=== PATIENT | male | born 1965 | race Two or more races ===

== ENCOUNTER 2024-06-28 20:01 | Emergency (ER) | payer MEDICAID, SELFPAY ==
[2024-06-28 20:02] VITALS: BMI 23.0
[2024-06-28 20:12] VITALS: BP 152/85; PULSE 94; RESP 18; TEMP 37.2; O2SAT 99
--- NOTE | 2024-06-28 20:32 | PD.EDALLER ---
ED Allergic Reaction RME/HPI General Chief complaint: Skin/Abscess/Foreign Body Stated complaint: ITCHING x 3 MONTHS Time Seen by Provider: 06/28/24 20:27 Arrival date/time: 06/28/24 20:01 58M with history of homelessness presents to ED with 3 months of intermittent itchiness. No new foods, meds, or hygiene products. Limitations: no limitations Related Data Previous Rx's ?Medication ?Instructions ?Recorded cetirizine 10 mg tablet 10 mg PO BID allergy symptoms #60 06/28/24 tabs prednisone 20 mg tablet 20 mg PO BID 1 week #14 tabs 06/28/24 Allergies Allergy/AdvReac Type Severity Reaction Status Date / Time No Known Allergies Allergy Verified 06/28/24 20:03 Review of Systems Review of Systems Systems Reviewed: All systems reviewed, normal except as documented Constitutional Constitutional: Reports system reviewed and no additional complaints, except as documented, Denies fever(s) and Denies headache(s) ENT Ears, Nose, Mouth, and Throat: Denies disequilibrium and Denies headache(s) Cardiovascular Cardiovascular: Reports system reviewed and no additional complaints, except as documented, Denies chest pain and Denies dyspnea Respiratory Respiratory: Reports system reviewed and no additional complaints, except as documented, Denies cough and Denies dyspnea Gastrointestinal Gastrointestinal: Reports system reviewed and no additional complaints, except as documented, Denies abdominal pain, Denies nausea and Denies vomiting Integumentary/Breasts Skin/Breast: Reports as per HPI and Reports pruritus Neurologic Neurologic: Reports system reviewed and no additional complaints, except as documented, Denies confusion, Denies disequilibrium and Denies headache(s) Psychiatric Psychiatric: Denies confusion Past Medical History Past Medical History CARDIAC: Positive Hypercholesterolemia and Hypertension; Negative Congestive Heart Failure RESPIRATORY: Negative Chronic Obstructive Pulmonary Disease (COPD) GENITOURINARY: Negative Renal Disease ENDOCRINE: Negative Diabetes Mellitus Type 1 or Diabetes Mellitus Type 2 PSYCHO/SOCIAL: Positive Depression and Anxiety Social History SMOKING STATUS: Never smoker SUBSTANCE USE: methamphetamine (intranasal meth) ED Exam General Limitations: Present no limitations General appearance: Present alert and in no apparent distress Head Head exam: Present atraumatic Eye Eye exam: Present normal appearance, PERRL and EOMI ENT ENT exam: Present normal exam, normal oropharynx and mucous membranes moist Neck Neck exam: Present normal inspection, full ROM and trachea midline Chest Chest inspection: Present normal inspection and symmetric chest wall rise Respiratory Respiratory exam: Present normal lung sounds bilaterally Cardiovascular Cardiovascular exam: Present regular rate, normal rhythm and normal heart sounds Abdominal Exam Abdominal exam: Present soft and normal bowel sounds Extremities Exam Extremities exam: Present normal inspection and full ROM Back Exam Back exam: Present normal inspection and full ROM Neurological Exam Neurological exam: Present alert, oriented X3 and CN II-XII intact Psychiatric Psychiatric exam: Present normal affect and normal mood Skin Skin exam: Present warm, dry, intact and normal color Course Quality Measures none Orders Category Date Time Status Dexamethasone Inj [Decadron Inj] Med 06/28/24 20:28 Discontinued 10 mg PO X1 ONE DiphenhydrAMINE [Benadryl] Med 06/28/24 20:28 Discontinued 25 mg PO X1 ONE Vital Signs Vital signs: Vital Signs Temperature 98.9 F 06/28/24 20:12 Pulse Rate 94 06/28/24 20:12 Respiratory Rate 18 06/28/24 20:12 Blood Pressure 152/85 H 06/28/24 20:12 Pulse Oximetry (%) 99 06/28/24 20:12 Oxygen Delivery Method Room Air 06/28/24 20:12 O2 at 99% on RA and WNLs Allergic Reaction MDM Narrative MDM Narrative:: 58M with history of homelessness presents to ED with 3 months of intermittent itchiness. No new foods, meds, or hygiene products. Physical exam reveals no obvious rash or growths, except for mild excoriations from scratching. Patient is afebrile, calm, and alert. Mission Assessment Specialist and meds given. Patient data External records reviewed:: [facility] previous records Clinical information provided by:: patient Social determinants that could affect healthcare access:: housing Patient has the following chronic illnesses:: homelessness How is presenting disease/condition affected by chronic disease/condition?: exacerbated by Evaluation data The following diagnostics were reviewed and interpreted by me:: other (specify) (none) Lab and/or radiology exams considered but not ordered:: not ordered Interpretation Summary: n/a Medications / Prescriptions Medications or Prescriptions considered but not ordered:: ordered Medication administrations:: Medication Administration History Discontinued Medications Dexamethasone Sodium Phosphate (Dexamethasone Sod Phos Inj 10 Mg/Ml Vial) 10 mg PO X1 ONE Stop: 06/28/24 20:29 Last Admin: 06/28/24 20:35 Dose: 10 mg Documented By: Diphenhydramine HCl (Diphenhydramine 25 Mg Capsule) 25 mg PO X1 ONE Stop: 06/28/24 20:29 Last Admin: 06/28/24 20:35 Dose: 25 mg Documented By: EH above Consultations Consultation(s) initiated? (list below): No Diagnosis Differential Diagnosis allergic reaction: anaphylaxis, allergic reaction, angioedema, contact dermatitis, adverse reaction to drug, viral enanthem, urticaria and other (chronic pruritus ) Most likely diagnosis given after review of the tests above:: chronic pruritus Admission Indicated Admission indicated?: not indicated Admission Request Was there a request for admission?: No Disposition Plan Disposition Plan: Discharge Discharge Attestation Discharge Attestation: The patient and all family members were given an opportunity to ask questions and understood the discharge instructions. Discharge instructions specifically effects, indications for sooner follow up or return to the emergency department, and the expected course of current diagnosis. Patient condition: Stable Discharge Plan Plan Patient Disposition: HOME (Self Care) Disposition Comment: Stable Prescriptions/Referrals Prescriptions/Med Rec: New prednisone 20 mg tablet 20 mg PO BID 7 Days Qty: 14 0RF cetirizine 10 mg tablet 10 mg PO BID Qty: 60 0RF Problem List Clinical Impression: Chronic pruritus Patient/Caregiver Discharge Instructions Additional Instructions: Please follow-up with PCP within 24-48 hours and return immediately if symptoms worsen. If problem persists, see dermatology and/or supervisor evaporator. Recommend daily OTC antihistamine. Finish entire steroid course. Print Language: Barbadian Stand Alone Forms: Patient Portal Info Letter AINSLEY/YURIDIA Supervising Physician AINSLEY/YURIDIA Supervising Physician: Dr. Ramirez
[2024-06-28] MEDS: DEXAMETHASONE SOD PHOS INJ 10 MG/ML VIAL PO (20:35)
[2024-06-28] MEDS: DiphenhydrAMINE 25 MG CAPSULE PO (20:35)
== END 2024-06-28 21:00 | disposition home or self-care (01) ==
LOC: SERX 20:51
PROVIDERS: Emergency Provider Emergency Medicine
DX: L29.9 Pruritus, unspecified (principal)
CPT/HCPCS: 99282; J1100; A9270

== ENCOUNTER 2024-07-10 22:24 | Emergency (ER) | payer MEDICAID, SELFPAY ==
[2024-07-10 22:26] VITALS: BMI 21.7
--- NOTE | 2024-07-10 22:31 | PC.NURSE ---
Reported to tomato paste maker Alex that pt is endorsing suicidal ideation.
[2024-07-10 22:38] VITALS: BP 159/93; PULSE 96; RESP 20; TEMP 37; O2SAT 98
--- NOTE | 2024-07-10 23:24 | XR_ITS ---
Examination: Foot, left, 3 views Technique: AP, oblique, lateral views foot, 3 views Date and time of exam: July 10, 2024 1129 hrs. Indications: Left foot pain beginning 6 months ago. 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
--- NOTE | 2024-07-10 23:25 | PD.EDRME ---
Rapid Medical Screening Exam RME Arrival date/time: 07/10/24 22:24 58-year-old male presents emergency department complaining of left foot pain and suicidal ideation without plan. Chief Complaint: Suicidal Time Seen by Provider: 07/10/24 22:34 Vital signs: Vital Signs Temperature 98.6 F 07/10/24 22:38 Pulse Rate 96 07/10/24 22:38 Respiratory Rate 20 07/10/24 22:38 Blood Pressure 159/93 H 07/10/24 22:38 Pulse Oximetry (%) 98 07/10/24 22:38 Oxygen Delivery Method Room Air 07/10/24 22:38 Vital signs reviewed by provider: Yes
[2024-07-10 23:54] LABS: Basophils # (Auto) 0.1 Thou/mm3 (0.0-0.2); Basophils % (Auto) 1 % (0-2.5); Eosinophils # (Auto) 0.2 Thou/mm3 (0.0-0.5); Eosinophils % (Auto) 2 % (0-10); Hematocrit 42.3 % (41.0-53.0); Immature Granulocytes % (Auto) 0 % (0-0); Immature Granulocytes Auto 0.02 Thou/mm3 (0.00-0.00); Lymphocytes # (Auto) 2.7 Thou/mm3 (1.0-4.8); Lymphocytes % (Auto) 40 % (10-50); Mean Corpuscular HGB Conc 35.5 g/dl (31.0-37.0); Mean Corpuscular Volume 93 fL (80-100); Monocytes # (Auto) 0.7 Thou/mm3 (0.0-0.8); Monocytes % (Auto) 10 % (0-12); Neutrophils # (Auto) 3.1 Thou/mm3 (1.8-7.7); Neutrophils % (Auto) 47 % (37-80); Nucleated Red Blood Cell % 0 /100 WBC (0); Platelet Count 164 Thou/mm3 (140-440); Red Blood Count 4.54 Miln/mm3 (4.50-5.90); White Blood Count 6.7 Thou/mm3 (3.8-10.6)
[2024-07-11 00:28] LABS: Alanine Aminotransferase 35 U/L (10-49); Albumin/Globulin Ratio 1.7 (1.2-2.2); Alcohol, Blood Medical 397.5 mg/dL (0-10.0); Alkaline Phosphatase 159 U/L (46-116); Anion Gap 9 (7-16); Aspartate Amino Transferase 42 U/L (0-34); BUN/Creatinine Ratio 13 Ratio (12-20); Bilirubin,Total 0.3 mg/dL (0.3-1.2); Blood Urea Nitrogen 13 mg/dL (9-23); Calcium 9.1 mg/dL (8.3-10.6); Calcium (Corrected) 9.1 mg/dL (8.5-10.1); Carbon Dioxide 23.6 mMol/L (20.0-31.0); Chloride 108 mMol/L (98-107); Estimated Creatinine Clearance 81.6 mL/min (>60); Globulin 2.9 gm/dL (2.3-3.5); Glucose 100 mg/dL (74-106); Osmolality,Calculated 281 (275-295); Potassium 4.3 mMol/L (3.4-5.1); Sodium 141 mMol/L (136-145); Total Protein 7.9 gm/dL (5.7-8.2); eGFR > 60 See Note
[2024-07-11 00:37] LABS: Amphetamine/Methamp Scrn,U Negative (Negative); Barbiturate Screen,Urine Negative (Negative); Benzodiazepines Screen,Urine Negative (Negative); Benzoylecgonine Screen, Ur Negative (Negative); Fentanyl Screen,Urine Negative (Negative); Opiate Screen,Urine Negative (Negative); THC Screen,Urine Negative (Negative)
[2024-07-11 01:12] VITALS: BP 167/88; PULSE 90; RESP 20; TEMP 36.7; O2SAT 99
--- NOTE | 2024-07-11 01:22 | PD.EDSKIN ---
ED Skin Abcess FB-RME/HPI General Chief complaint: Skin/Abscess/Foreign Body Stated complaint: toenail infections bilaterally Time Seen by Provider: 07/10/24 22:34 Source: patient Arrival date/time: 07/10/24 22:24 Mode of arrival: ambulatory Limitations: no limitations RME / HPI RME / HPI narrative: 07/10/24 22:24 58-year-old male presents emergency department complaining of left foot pain and suicidal ideation without plan. Dr. Escalante?s Main ED Evaluation: 58-year-old male presents to the emergency department for complaints of moderate itchiness to his feet. Patient states it has been ongoing for the past 7 months. Patient denies suicidal ideation. He denies any other associated symptoms, aggravating factors or medical complaints. Patient reports difficulty sleeping despite sleeping in the ER lobby. Related Data Previous Rx's ?Medication ?Instructions ?Recorded cetirizine 10 mg tablet 10 mg PO BID allergy symptoms #60 06/28/24 tabs tolnaftate 1 % topical spray 1 spray topical TID Athlete's foot 07/11/24 (Tinactin) #150 grams Allergies Allergy/AdvReac Type Severity Reaction Status Date / Time No Known Allergies Allergy Verified 06/28/24 20:03 Review of Systems Review of Systems Systems Reviewed: All systems reviewed, normal except as documented Past Medical History Past Medical History CARDIAC: Positive Hypercholesterolemia and Hypertension; Negative Congestive Heart Failure RESPIRATORY: Negative Chronic Obstructive Pulmonary Disease (COPD) GENITOURINARY: Negative Renal Disease ENDOCRINE: Negative Diabetes Mellitus Type 1 or Diabetes Mellitus Type 2 PSYCHO/SOCIAL: Positive Depression and Anxiety Social History SMOKING STATUS: Never smoker SUBSTANCE USE: methamphetamine (intranasal meth) ED Exam Narrative Physical exam: GENERAL APPEARANCE: alert and oriented x 4, well-developed, well-nourished, no acute distress VITALS: All vitals were reviewed and the pulse ox is 99% on room air, which is normal according to my interpretation. HEENT: Normocephalic, atraumatic; pupils equal, round, reactive to light; EOMI; mucous membranes pink, moist; oropharynx clear NECK: Supple LUNGS: CTABL; no wheezes, no rales, no rhonchi HEART: Regular rate, regular rhythm; normal S1, S2; no murmurs ABDOMEN: non distended; normal BS; soft, no tenderness, no guarding, no rebound; no masses, no organomegaly, no hernia BACK: no CVA tenderness EXTREMITIES: atraumatic; no edema NEUROLOGIC: awake; alert and oriented x4; cranial nerves II-XII grossly intact; no focal sensory or motor deficits PSYCHIATRIC: appropriate mood and affect SKIN: warm, dry, normal color; no rashes General Limitations: Present no limitations Course Quality Measures none Orders Category Date Time Status XR foot comp LT min 3V Stat Exams 07/10/24 23:24 Completed Alcohol, Blood Medical Stat Lab 07/10/24 23:42 Completed CBC Stat Lab 07/10/24 23:42 Completed CMP [Comprehensive Metabolic Panel] Stat Lab 07/10/24 23:42 Completed Drug Screen,Urine Stat Lab 07/10/24 23:56 Completed Vital Signs Vital signs: Vital Signs Temperature 98.6 F 07/10/24 22:38 Pulse Rate 96 07/10/24 22:38 Respiratory Rate 20 07/10/24 22:38 Blood Pressure 159/93 H 07/10/24 22:38 Pulse Oximetry (%) 98 07/10/24 22:38 Oxygen Delivery Method Room Air 07/10/24 22:38 Skin / Abscess / Foreign Body MDM Narrative MDM Narrative:: Scribe Attestation: IGonzalez am scribing for and in the presence of Dr. Escalante. Provider Notation: Although this document has been carefully reviewed, there may still be some phonetic and other typographical errors. These errors are purely grammatical due to imperfections in the software program and should not be construed in any way to compromise the substance of the patient's medical care during this visit. Patient data External records reviewed:: [facility] previous records Clinical information provided by:: patient Social determinants that could affect healthcare access:: alcohol use Patient has the following chronic illnesses:: HLD, HTN, Depression, Anxiety How is presenting disease/condition affected by chronic disease/condition?: uneffected by Evaluation data The following diagnostics were reviewed and interpreted by me:: lab results and radiology exam(s) Lab and/or radiology exams considered but not ordered:: None Interpretation Summary: Examination: Foot, left, 3 views Date and time of exam: July 10, 2024 1129 hrs. Indications: Left foot pain beginning 6 months ago. 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 (list below): No Diagnosis Skin/Abscess Differential Diagnosis: other (Athlete's foot vs tinea corporis vs tinea cruris vs allergic reaction) Most likely diagnosis given after review of the tests above:: Athlete's foot Admission Indicated Admission indicated?: not indicated Admission Request Was there a request for admission?: No Disposition Plan Disposition Plan: Discharge Discharge Attestation Discharge Attestation: The patient and all family members were given an opportunity to ask questions and understood the discharge instructions. Discharge instructions specifically effects, indications for sooner follow up or return to the emergency department, and the expected course of current diagnosis. Patient condition: Stable Discharge Plan Plan Patient Disposition: HOME (Self Care) Disposition Comment: Stable for discharge Patient condition on transfer: Stable Prescriptions/Referrals Prescriptions/Med Rec: New Tinactin 1 % aerosol,spray 1 spray topical TID Qty: 150 0RF No Action cetirizine 10 mg tablet 10 mg PO BID Qty: 60 0RF Referrals: [facility] [Outside] - In 1 week No Primary/Family,Physician [Primary Care Provider] - In 1 week Problem List Clinical Impression: Athlete's foot Patient/Caregiver Discharge Instructions Discharge Activity: activity as tolerated Education Materials: ED Athlete's Foot Additional Instructions: I ordered a prescription for a medicine called Tinactin. This is a spray that you put on your feet 3 times a day. This is for athlete's foot and hopefully will help you with your itchiness. You should follow-up in the [facility] within the next several days Return to the emergency department if you have any worsening or any further medical problems Print Language: Lao Stand Alone Forms: [employer] Award Info., Patient Portal Info Letter
--- NOTE | 2024-07-11 01:25 | PC.NURSE ---
PATIENT DENIES ANY SUICIDAL IDEATIONS AND IS ONLY C/O BILATERAL TOE PAIN
== END 2024-07-11 02:05 | disposition home or self-care (01) ==
PROVIDERS: Emergency Provider Emergency Medicine
DX: B35.3 Tinea pedis (principal); M19.072 Primary osteoarthritis, left ankle and foot; M20.12 Hallux valgus (acquired), left foot; M21.612 Bunion of left foot
CPT/HCPCS: 36415; 73630; 80053; 80307; 80320; 85025; 99283; G0480